=== PATIENT | female | born 1945 | race Caucasian/White ===

== ENCOUNTER → 2016-08-02 | Outpatient (CLI) | payer MEDICARE, MEDICAID ==
[~2016-08-02] MED LIST: CALTRATE-600 W600 MG PO; COLACE 100100 MG/CAP PO; DETROL LA4 PO; DEXILANT30 MG PO; FOLIC ACID 40400 MCG PO; GABAPENTIN TAB600 MG PO; GABAPENTIN300 M1 PO; GABAPENTIN300 MG PO; IBUPROFEN800 MG PO; IRON325 M1 PO; LISINOPRIL/HCTZ PO; MULTIPLE VITAMI1 CAP PO; MULTIVITAMIN PO; PLAVIX 75MG TAB75 MG PO; PRILOSEC 20MG20 MG PO; PROTONIX 40MG T40 MG PO; TRAMADOL50 MG PO; TYLENOL 500MG500 MG PO; ULTRAM 50MG TAB50 MG; VITAMIN B122500 MCG SL; VITAMIN C250250 MG PO; VITAMIN C500 MG PO; VITAMINC1000TA PO; ZESTORETIC 12.51 TAB PO; ZOCOR 20MG20 MG PO; ZOLOFT 100MG100 MG PO; ZOLOFT PO
== END ==
LOC: MC.RAD 08:24
DX: N60.11 Diffuse cystic mastopathy of right breast (principal)

== ENCOUNTER → 2017-04-04 | Outpatient (REF) | LOC: ZLAB.WCH 14:42 | DX: Z01.89 Encounter for other specified special examinations (principal) ==

== ENCOUNTER → 2017-10-31 | Outpatient (REF) | LOC: ZLAB.WCH 08:42 | DX: Z01.89 Encounter for other specified special examinations (principal) ==

== ENCOUNTER 2018-05-08 12:55 | Inpatient (IN) | payer MEDICARE, MEDICAID ==
[~2018-05-08] VITALS: Ht 170.2 cm; Wt 91.4 kg
[2018-06-20] VITALS (11 sets, daily range): BP systolic 125–170; BP diastolic 57–81; PULSE 60–78; TEMP 97.1–98.6
[2018-06-20] MEDS ORDERED: VITAMIND3 5000 PO (08:53)
[2018-06-20] MEDS ORDERED: PRILOSEC 20MG20 MG PO (08:54)
[2018-06-20] MEDS ORDERED: HAIRSKINNAILS PO (08:54)
[2018-06-20] MEDS ORDERED: HCTZ12.5TAB PO (08:55)
[2018-06-20] MEDS ORDERED: WELLBUTRIN XL150 MG PO (08:56)
[2018-06-20] MEDS ORDERED: ALEVE 220MG220 MG PO (08:56)
--- NOTE | 2018-06-20 12:25 | NUR ---
PATIENT ARRIVED TO ROOM 326 VIA BED FROM THE PACU. PATIENT IS DROWSY FROM SURGERY, BUT AROUSES EASILY TO NAME. POST-OP VSS. BOWEL SOUNDS HYPOACTIVE ALL FOUR QUADRANTS. PATIENT TOLERATING SIPS & CHIPS WITHOUT ANY COMPLAINTS OF N/V. MIDLINE ABDOMINAL INCISION DRESSED WITH GAUZE AND HYPAFIX AND IS CD&I. ROSE MARY DRAINS X2 TO RIGHT AND LEFT OF MIDLINE ABDOMINAL INCISION. ROSE MARY DRAINS TO BULB COMPRESSION WITH SMALL AMOUNTS OF BLOODY DRAINAGE PRESENT IN BULBS. ROSE MARY DRAIN INCISION SITES DRESSED WITH GAUZE & HYPAFIX. SMALL AMOUNTS OF BLOODY DRAINAGE PRESENT ON RIGHT-SIDED ROSE MARY DRAIN DRESSING. LEFT-SIDED ROSE MARY DRAIN INCISION DRESSING IS CD&I. ABD BINDER IN PLACE. POSITIVE PEDAL PULSES EQUAL BILATERALLY. SCD'S TO BLE. IV FLUIDS INFUSING TO RIGHT HAND IV. CALL LIGHT WITHIN REACH. FAMILY PRESENT AT THE BEDSIDE. PATIENT DENIES ANY NEEDS AT THIS TIME.
--- NOTE | 2018-06-20 19:20 | NUR ---
Patient resting with HOB elevated. at bedside. Pt c/o incisional pain 02/02. BS + x4. Pt denies flatus. Midline abdominal incision covered in guaze and hypafix. ROSE MARY drains x2 to bulb suction with serous drainage noted. Small amount of drainage noted on bottom of midline dressing and r ROSE MARY site. O2 @ 2 via NC. [address] in [address]. IVF infusing. Pt tolerating Clear liquids.
--- NOTE | 2018-06-20 19:31 | NUR ---
REPORT GIVEN TO VIV AYALA.
--- NOTE | 2018-06-20 20:25 | NUR ---
Pt ambulated to bathroom to void clear yellow urine and then up to chair. Well tolerated.
--- NOTE | 2018-06-20 21:50 | NUR ---
Patient tolerating clear liquids well. IV fluids unhooked. Pt back to bed. SCDs reapplied.
[2018-06-21 00:24] VITALS: BP 126/62; PULSE 65; TEMP 98.3
--- NOTE | 2018-06-21 05:53 | NUR ---
Patient resting in bed. Up with stand by assist to bathroom. Linens changed. ROSE MARY drains emptied and placed back on bulb suction. Pt rates pain 4/10 and denies need for medication. Up to chair after using bathroom and voiding clear, yellow urine.
[2018-06-21 06:01] LABS: HEMATOCRIT 37.1 % (37.0-47.0)
[2018-06-21 06:14] LABS: CALCIUM 8.2 mg/dL (8.4-10.2); CREATININE, serum 0.85 mg/dL (0.52-1.25); PHOSPHOROUS 3.5 mg/dL (2.5-4.5); POTASSIUM 3.7 mmol/L (3.4-5.0)
--- NOTE | 2018-06-21 08:00 | NUR ---
PATIENT IS SITTING UP IN BED THIS MORNING. PATIENT IS A&O. VSS. SHALLOW BREATHING NOTED, PATIENT STATES THAT SHE SHE FEELS SHORT OF BREATH. ALL LUNG FARMER CLEAR UPON AUSCULTATION. BOWEL SOUNDS HYPOACTIVE ALL FOUR QUADRANTS. PATIENT TOLERATING CLEAR LIQUIDS WITHOUT ANY COMPLAINTS OF N/V. MIDLINE ABDOMINAL INCISION DRESSED WITH GAUZE AND HYPAFIX AND IS CD&I. SMALL AMOUNT OF BLOODY DRAINAGE PRESENT ON MIDLINE DRESSING. RIGHT ABDOMINAL ROSE MARY DRAIN INCISION SITE DRESSED WITH GAUZE & HYPAFIX. RIGHT ROSE MARY TO BULB COMPRESSION WITH SCANT AMOUNTS OF BLOODY DRAINAGE PRESENT IN BULB. LEFT ABDOMINAL ROSE MARY DRAIN INCISION SITE DRESSED WITH GAUZE & HYPAFIX. SMALL AMOUNT OF BLOODY DRAINAGE PRESENT ON LEFT ROSE MARY DRESSING. LEFT ROSE MARY DRAIN TO BULB COMPRESSION WITH SMALL AMOUNTS OF BLOODY DRAINAGE PRESENT IN BULB. ABD BINDER IN PLACE. POSITIVE PEDAL PULSES EQUAL BILATERALLY. SCD'S TO BLE. RIGHT HAND TO INT. CALL LIGHT WITHIN REACH. PATIENT DENIES ANY NEEDS AT THIS TIME.
[2018-06-21 09:37] VITALS: BP 100/42; PULSE 81; TEMP 99.5
[2018-06-21 12:39] VITALS: BP 98/48; PULSE 67; TEMP 99.3
--- NOTE | 2018-06-21 15:09 | NUR ---
First visit from the supervisor anodizing. prayed with patient. No other needs right now.
--- NOTE | 2018-06-21 16:43 | NUR ---
ZIGGY met with the patient and patient's boyfriend, Mark, to discuss discharge plan. The patient lives alone in [place]. She reports independence with ADLs and has canes. The patient's PCP is Jennifer Lepe PA-C and she receives her medications at [facility]. She reports no difficulties obtaining her meds. The patient does not have advanced directives and she was not interested in completing them at this time. The patient plans to return home upon discharge. No additional needs at this time.
[2018-06-21 17:26] VITALS: BP 92/56; PULSE 70; TEMP 99.5
--- NOTE | 2018-06-21 19:25 | NUR ---
PATIENT UP IN THE CHAIR DURING THE MORNING. PATIENT AMBULATED THROUGH HALLS MULTIPLE TIMES THROUGHOUT SHIFT. REPORT GIVEN TO ROGELIO MACIAS.
[2018-06-21 19:37] VITALS: BP 107/57; PULSE 80; TEMP 98.3
--- NOTE | 2018-06-21 20:00 | NUR ---
Patient resting in bed watching television at this time. Patient is alert and oriented, answers questions appropriately. Patient has midline incision that is dressed, small amount of bloody drainage visible on dressing. Abdominal binder in place. ROSE MARY drain to right and left abdomen have a small amount of bloody drainage in them. Patient currently denies pain or further needs, call light within reach.
[2018-06-21 23:29] VITALS: BP 117/66; PULSE 82; TEMP 98.2
[2018-06-22 05:06] VITALS: BP 109/60; PULSE 78; TEMP 98.4
--- NOTE | 2018-06-22 05:12 | NUR ---
Patient has rested well overnight. Patient independent to restroom where she has been continent of bladder. ROSE MARY drains to right and left abdomen continue to have small amount of bloody drainage, right had 30ml overnight and left 10ml. Patient has continued to deny pain or further needs, call light within reach.
[2018-06-22 07:57] VITALS: BP 119/53; PULSE 70; TEMP 98.6
[2018-06-22 11:31] VITALS: BP 92/46; PULSE 68; TEMP 97.9
[2018-06-22 13:30] VITALS: BP 125/51; PULSE 71; TEMP 98.3
--- NOTE | 2018-06-22 14:42 | NUR ---
Patient sitting up in bed eating dinner. She has done well today. Up and ambulated the halls with her daughter. Patient weaned off of O2, VSS. Patient instructed on ROSE MARY drain. She was able to demonstate ROSE MARY drain care. This am new gauze dressings tegaderm to drain sites. Int DC. Patient has ate lightly today, minimal appetite. abdominal binder on. Patient assisted to dress & daughter to take her home with all belongings, wheeled out with wheelchair.
== END 2018-06-22 14:57 | disposition home or self-care (01) | DRG 337 ==
LOC: SURG 06-20 07:37 → INPTSU 06-20 07:37 → SURG 06-20 09:30
PROVIDERS: ADMIT Surgery
PROC: 0DNW0ZZ Release Peritoneum, Open Approach (ICD-10-PCS; 2018-06-20)
PROC: 0WPF0JZ Removal of Synthetic Substitute from Abdominal Wall, Open Approach (ICD-10-PCS; 2018-06-20)
PROC: 0WUF0JZ Supplement Abdominal Wall with Synthetic Substitute, Open Approach (ICD-10-PCS; principal; 2018-06-20 09:30)
DX: K43.2 Incisional hernia without obstruction or gangrene (principal); T85.848A Pain due to other internal prosthetic devices, implants and grafts, initial encounter; K66.0 Peritoneal adhesions (postprocedural) (postinfection); Y83.2 Surgical operation with anastomosis, bypass or graft as the cause of abnormal reaction of the patient, or of later complication, without mention of misadventure at the time of the procedure; Y81.3 Surgical instruments, materials and general- and plastic-surgery devices (including sutures) associated with adverse incidents; I10 Essential (primary) hypertension
CPT/HCPCS: A4314; A9284; C1781; J0690; J1100; J1650; J2405; J2704; J2710; J2765; J3010; J7120

== ENCOUNTER → 2021-01-25 | Outpatient (CLI) | payer MEDICARE, MEDICAID ==
[~2021-01-25] MED LIST changes: +ALEVE 220MG220 MG PO; +HAIRSKINNAILS PO; +HCTZ12.5TAB PO; +VITAMIND3 5000 PO; +WELLBUTRIN XL150 MG PO
== END ==
LOC: COL.RAD 07:33
DX: K21.9 Gastro-esophageal reflux disease without esophagitis (principal); K44.9 Diaphragmatic hernia without obstruction or gangrene
CPT/HCPCS: A9541

== ENCOUNTER 2021-06-01 12:04 | Day surgery (SDC) | payer MEDICARE, MEDICAID ==
[2021-06-01] VITALS (11 sets, daily range): BP systolic 124–159; BP diastolic 51–81; PULSE 69–98; TEMP 98–98.9
[~2021-06-01] VITALS: Ht 170.2 cm; Wt 106.5 kg
[2021-06-01] MEDS ORDERED: PRIL40 PO (13:48)
[2021-06-01] MEDS ORDERED: WELLBUTRIN XL150 MG PO (13:49)
[2021-06-01] MEDS ORDERED: ZOCOR 40MG40 MG PO (13:51)
[2021-06-01] MEDS ORDERED: DIOVAN HCT 25 M1 TAB PO (13:51)
[2021-06-01] MEDS ORDERED: VENTOLIN0.09 MG IH (13:52)
--- NOTE | 2021-06-01 18:41 | NUR ---
this RN presumes care of pt
--- NOTE | 2021-06-01 19:11 | NUR ---
PT. C/O PAIN 01/02 IN HER CHEST. STATES THIS HAS FELT THIS WAY SINCE SURGERY. FEELS LIKE SHE JUST NEEDS TO TAKE A DEEP BREATH. WILL CONTINUE TO MONITOR
--- NOTE | 2021-06-01 21:00 | NUR ---
Pt reports feeling "Pressure in her chest." States it gets worse when she takes a deep breath. Vital signs taken. Denies any other symptoms. Assessment completed. 2110: notified and new orders received. Pt updated on new plan of care and orders.
--- NOTE | 2021-06-01 21:25 | NUR ---
181: RN RECIEVES CARE FROM PACU NURSE. PT. IS C/O OF CHEST PAIN. STATES "I FEEL LIKE I NEED TO TAKE A BIG DEEP BREATH". THIS RN ASKED PACU NURSE IF THIS WAS HER BASELINE AND IF SHE FELT THIS WAY IN PACU AND IF SHE HAD ANY CARDIAC ISSUES. FRONT MAKER LOCKSTITCH STATES SHE FELT THIS WAY IN PACU AND SHE DOESN'T HAVE ANY ON HER CHART OR THAT WAS MENTIONED. THIS RN WILL CONTINUE TO MONITOR CHEST PAIN/O2 SAT, VITAL SIGNS
--- NOTE | 2021-06-01 22:00 | NUR ---
EPHRAIM Castillo in room to assess pt.
[2021-06-01 22:49] LABS: BILIRUBIN,TOTAL 0.4 mg/dL (0.2-1.2); CALCIUM 8.7 mg/dL (8.4-10.2); CREATININE, serum 1.1 mg/dL (0.57-1.11); MAGNESIUM 1.9 mg/dL (1.6-2.6); POTASSIUM 4.3 mmol/L (3.5-4.5); TOTAL PROTEIN 6.8 gm/dL (6.2-8.1)
--- NOTE | 2021-06-01 23:40 | NUR ---
O2 SAT 94% ON 2L VIA NC. 2342: EPHRAIM RUST UPDATED. SEE PHYSICAN NOTIFICATION
--- NOTE | 2021-06-02 01:30 | NUR ---
PT ASSISSED UP TO BATHROOM- PT DOES WELL VOID OF 300 YELLOW URINE PT GIVEN ORANGE JELLO- DENIES NEEDS AT THIS TIME SCDS IN PLACE AND ON
[2021-06-02 03:46] LABS: BASO % 0.1 % (0.0-2.0); GRAN # 12.5 K/mm3 (1.4-6.5); LYMPH % 6.7 % (20.0-51.0); MEAN CELL VOLUME 82 fl (80.0-100.0); MEAN CORPUSCULAR HEMOGLOBIN 27 pg (27.0-31.0); MEAN CORPUSCULAR HGB CONC 33 g/dl (33.0-37.0); MEAN PLATELET VOLUME 10.3 fl (7.4-10.4); MONO # 0.8 K/mm3 (0.1-0.6); MONO % 5.6 % (1.7-9.3); PLATELET COUNT 180 K/mm3 (130-400); RED BLOOD COUNT 4.47 M/mm3 (4.10-5.30); REDCELL DISTRIBUTION WIDTH-CV 14.6 % (11.5-14.5)
[2021-06-02 03:49] LABS: HEMATOCRIT 36.5 % (37.0-47.0)
[2021-06-02 04:00] VITALS: BP 119/56; PULSE 87; TEMP 98.2
--- NOTE | 2021-06-02 04:00 | NUR ---
PT STATES THAT SHE GOT A LITTLE SLEEP- DENIES PAIN OR NEEDS AT THIS TIME O2 SAT. WAS 92 %
[2021-06-02 07:45] VITALS: BP 142/63; PULSE 77; TEMP 97.9
--- NOTE | 2021-06-02 08:00 | NUR ---
97% 02 SAT ON 2 L OXYGEN VIA NC.
--- NOTE | 2021-06-02 09:45 | NUR ---
DR. MELENDEZ AT BEDSIDE. 02 PER NC REMOVED. 02 SAT 89% ON ROOM AIR. PATIENT ENCOURAGED TO DEEP BREATH AND RAISES TO 95%. PT EDUCATED ON USING INCENTIVE SPIROMETER EVERY HOUR.
[2021-06-02] MEDS ORDERED: ULTRAM 50MG TAB50 MG PO (09:56)
--- NOTE | 2021-06-02 10:30 | NUR ---
RN ASSISTED WITH COLLECTING CLEAN CATCH UA PER PATIENT REQUEST. ONLY SMALL AMOUNT OBTAINED. LAB STATES THEY NEED MORE URINE THAN WHAT WAS PROIVDED.
--- NOTE | 2021-06-02 11:00 | NUR ---
PATIENT TO CT VIA W/C WITH CT STAFF.
--- NOTE | 2021-06-02 12:45 | NUR ---
DR. LYLES AT BEDSIDE AND VISITING WITH PATIENT. ORDER TO DC UA OBTAINED. REVIEWS CT RESULTS WITH PATIENT.
--- NOTE | 2021-06-02 13:40 | NUR ---
DISCHARGE TEACHING COMPLETED. PATIENT EDUCATED ON MAKING FOLLOW UP APPOINTMENT WITH DR. MELENDEZ FOR 1 WEEK. WEIGHT RESTRICTIONS COMMUNICATED. DIET PLAN REVIEWED. QUESTIONS INVITED AND ANSWERED.
--- NOTE | 2021-06-02 13:50 | NUR ---
PATIENT TAKEN BY WC TO CAR.
== END 2021-06-02 13:50 | disposition home or self-care (01) ==
LOC: SDCO 12:04 → OB 18:15 → SDCO 06-02 13:50
PROVIDERS: Student in an Organized Health Care Education/Training Program
DX: K44.9 Diaphragmatic hernia without obstruction or gangrene (principal); K21.9 Gastro-esophageal reflux disease without esophagitis; K80.20 Calculus of gallbladder without cholecystitis without obstruction; K66.0 Peritoneal adhesions (postprocedural) (postinfection); I10 Essential (primary) hypertension; R32 Unspecified urinary incontinence; E78.5 Hyperlipidemia, unspecified; G47.33 Obstructive sleep apnea (adult) (pediatric); J96.01 Acute respiratory failure with hypoxia; J98.11 Atelectasis; M19.90 Unspecified osteoarthritis, unspecified site; G89.29 Other chronic pain; M54.9 Dorsalgia, unspecified; G62.9 Polyneuropathy, unspecified; E78.00 Pure hypercholesterolemia, unspecified; D64.9 Anemia, unspecified; F32.A Depression, unspecified; F41.9 Anxiety disorder, unspecified; Z79.899 Other long term (current) drug therapy; Z87.891 Personal history of nicotine dependence; Z90.710 Acquired absence of both cervix and uterus; Z82.3 Family history of stroke
CPT/HCPCS: OP; 99222; C1781; J0690; J1100; J2405; J2704; J3010; J7120; Q9967